=== PATIENT | male | born 1965 | race Caucasian/White ===

== ENCOUNTER 2021-06-21 17:18 | Emergency (ER) | payer BC ==
--- NOTE | 2021-06-21 17:52 | EDM.PDOC ---
ED HPI GENERAL MEDICAL PROBLEM - General Chief Complaint: General Stated Complaint: foreign body Time Seen by Provider: 06/21/21 17:35 Source of Information: Reports: Patient History Limitations: Reports: No Limitations - History of Present Illness INITIAL COMMENTS - FREE TEXT/NARRATIVE: presented to the ER due to a c/o FB in the right eye for 2 hrs. He was farming and moving hay around. He tried to wash his eye to remove it but didn't work. Reports irritation and light sensitivity. Onset: Sudden Duration: Hour(s): (2) Location: Reports: Other (right eye) Quality: Reports: Dull - Related Data Allergies Allergy/AdvReac Type Severity Reaction Status Date / Time No Known Allergies Allergy Verified 06/21/21 17:33 Past Medical History - Past Health History Medical/Surgical History: Denies Medical/Surgical History Social & Family History - Tobacco Use Tobacco Use Status *Q: Never Tobacco User ED ROS GENERAL - Review of Systems Review Of Systems: See Below Constitutional: Reports: No Symptoms Respiratory: Reports: No Symptoms Cardiovascular: Reports: No Symptoms GI/Abdominal: Reports: No Symptoms Musculoskeletal: Reports: No Symptoms Skin: Reports: No Symptoms Neurological: Reports: No Symptoms ED EXAM, GENERAL - Physical Exam Exam: See Below Exam Limited By: No Limitations General Appearance: Alert, WD/WN, No Apparent Distress Eye Exam: Right Eye: Foreign Body (a small piece of hay under right upper eye lid), Bilateral Eye: EOMI, PERRL Head: Atraumatic Respiratory/Chest: No Respiratory Distress Cardiovascular: Normal Peripheral Pulses Course - Vital Signs Last Recorded V/S: Last Vital Signs Temp 36.7 C 06/21/21 17:34 Pulse 76 06/21/21 17:34 Resp 16 06/21/21 17:34 BP 134/69 06/21/21 17:34 Pulse Ox 99 06/21/21 17:34 - Re-Assessments/Exams Free Text/Narrative Re-Assessment/Exam: eye was washed and cleaned a small piece of hay was removed from under the upper eye lid. no complications antibiotics eye drops was given Departure - Departure Time of Disposition: 17:52 Disposition: Home, Self-Care 01 Condition: Good Clinical Impression: Eye foreign body - Discharge Information *PRESCRIPTION DRUG MONITORING PROGRAM REVIEWED*: Not Applicable *COPY OF PRESCRIPTION DRUG MONITORING REPORT IN PATIENT SAMIR: Not Applicable Instructions: Eye Foreign Body, [id number] Referrals: PCP,None [Primary Care Provider] - Forms: ED Department Discharge Additional Instructions: - oral eye drops twice daily as prescribed for 3 days - return to the ER if any concerns Sepsis Event Note (ED) - Evaluation Sepsis Screening Result: No Definite Risk - Focused Exam Vital Signs: Vital Signs Temp Pulse Resp BP Pulse Ox 06/21/21 17:34 36.7 C 76 16 134/69 99 06/21/21 17:31 36.7 C 76 16 134/69 99 - Problem List & Annotations (1) Eye foreign body SNOMED Code(s): 930686797, 918594296 Code(s): T15.90XA - FOREIGN BODY ON EXTERNAL EYE, PART UNSP, UNSP EYE, INIT Status: Acute Priority: Low Current Visit: Yes Qualifiers: Encounter type: initial encounter Laterality: right Qualified Code(s): T15.91XA - Foreign body on external eye, part unspecified, right eye, initial encounter - Problem List Review Problem List Initiated/Reviewed/Updated: Yes - Assessment/Plan Plan: - oral eye drops twice daily as prescribed for 3 days - return to the ER if any concerns
[2021-06-21] MEDS ORDERED: Ciprofloxacin 0.3% Ophth Soln 2.5 ML Bottle ONE (18:00)
== END 2021-06-21 18:00 | disposition home or self-care (01) ==
LOC: LB.ED 17:18
DX: T15.11XA Foreign body in conjunctival sac, right eye, initial encounter (principal)
CPT/HCPCS: 65205; 99283; A9270; 99282